=== PATIENT | female | born 1935 | race Caucasian/White ===

== ENCOUNTER 2019-05-06 08:00 | Inpatient (IN) ==
[2019-05-13] MEDS ORDERED: TRANEXAMIC ACID 1,000 MG in NORMAL SALINE 100 ML IV PRN (06:00)
[2019-05-13] MEDS ORDERED: ceFAZolin SODIUM 1 GM VIAL IV PRN (06:00)
[2019-05-13] MEDS ORDERED: ROPIVACAINE HCL/PF 100 MG, EPINEPHrine 0.2 MG, KETOROLAC TROMETHAMINE 30 MG in NORMAL S... IJ PRN (06:00)
--- NOTE | 2019-05-13 07:26 | ANES ---
Anesthesia Pre Procedure Eval Vitals/Labs: Last Vital Signs Temp 36.7 C 05/13/19 06:45 Pulse 69 05/13/19 06:45 Resp 16 05/13/19 06:45 BP 136/54 05/13/19 06:45 Pulse Ox 100 05/13/19 06:45 HOME MEDICATIONS chlorthalidone 25 mg tablet 25 mg PO DAILY #90 tab 03/19/19 [Last Taken 05/12/19] furosemide 40 mg tablet 40 mg PO DAILY PRN #30 tab 03/19/19 [Last Taken Unknown] hydrocodone 5 mg-acetaminophen 325 mg tablet 1 tab PO Q4H PRN #112 tab 03/19/19 [Last Taken 05/12/19] levothyroxine 50 mcg tablet 50 mcg PO DAILY #90 tab 03/19/19 [Last Taken 05/12/19] metformin 500 mg tablet 500 mg PO BID #180 tab 03/19/19 [Last Taken 05/12/19] pantoprazole 40 mg tablet,delayed release 40 mg PO DAILY #90 tab 03/19/19 [Last Taken 05/12/19] potassium chloride ER 10 mEq tablet,extended release(part/cryst) 10 meq PO TID #60 tab 03/19/19 [Last Taken Unknown] ropinirole 2 mg tablet 0.5 mg PO HS #180 tab 03/19/19 [Last Taken 05/12/19] ferrous gluconate 324 mg (38 mg iron) tablet 324 mg PO BID 04/09/19 [Last Taken 05/12/19] infliximab 100 mg intravenous solution 100 mg IV Q8W ea 04/09/19 [Last Taken 04/07/19] Allergies/Adverse Reactions: Allergies Allergy/AdvReac Type Severity Reaction Status Date / Time Penicillins Allergy Intermediate Swelling Verified 05/13/19 06:34 (Other) - Planned Procedure Planned Procedure: Left Total Knee Arthroplasty Medication List Reviewed:: Yes Allergies Verified: Yes Medical History (Updated 05/01/19 @ 01:05 by Chance Yee DO) Edema Onset Date: Unknown GERD (gastroesophageal reflux disease) Onset Date: Unknown Hypertension Onset Date: Unknown Hypothyroidism Onset Date: Unknown Rheumatoid arthritis Onset Date: Unknown Type 2 diabetes mellitus Onset Date: Unknown Surgical History (Updated 03/19/19 @ 14:41 by Nilda Cohen LPN) H/O arthroscopic knee surgery Onset Date: Unknown History of cholecystectomy Onset Date: Unknown Family History (Updated 03/19/19 @ 14:42 by Nilda Cohen LPN) Father Leukemia Mother Heart disease Sister Pancreatic cancer Sister Diabetes Colon cancer - Family Anesthesia History Family History:: no untoward family reactions to anesthesia, no familial bleeding tendencies, no family history of clotting disorders, no family history of premature - Airway/Neck/Teeth Teeth Condition: none Neck Exam: full range of motion Mallampatti Score: 1 Thyromental (T-M) distance: > 6 cm Mandibulo Hyoid distance: > 3 cm - Respiratory Respiratory Physical: lungs clear Smoking Status: Former smoker Sleep Apnea currently treated: No Sleep Apnea by current assessment: No - Cardiovascular Cardiac History: hypertension, valvular heart disease - by auscultation. No Echocardiogram present Tolerate Activity: Poor Heart Sounds: S1 & S2, Regular, Murmur - Grade III murmer throughout precordium, PMI at base. - Anesthesia Assessment and Plan ASA Class: PS, III Anesthesia Type Plan: General LMA, Block - for post op pain relief
[2019-05-13] MEDS: RINGER'S SOLUTION,LACTATED 1,000 ML IV PRN ×2 (07:30→08:15)
[2019-05-13] MEDS ORDERED: VANCOMYCIN HCL TP ONE ×2 (09:40)
[2019-05-13] MEDS ORDERED: DEXTROSE 5% TP ONE ×2 (09:40)
[2019-05-13] MEDS ORDERED: WATER TP ONE ×2 (09:40)
[2019-05-13] MEDS ORDERED: VANCOMYCIN HCL 1 GM VIAL TP ONE (10:00)
[2019-05-13] MEDS ORDERED: ACETAMINOPHEN 500 MG TABLET PO PRN (10:49)
[2019-05-13] MEDS ORDERED: MAG HYDROX/ALUMINUM HYD/SIMETH 30 ML UDC PO PRN (10:49)
[2019-05-13] MEDS ORDERED: ONDANSETRON HCL/PF 2 MG/ML VIAL IV PRN (10:49)
[2019-05-13] MEDS ORDERED: HYDROcodone/ACETAMINOPHEN 1 EACH TABLET PO PRN ×2 (10:49)
[2019-05-13] MEDS ORDERED: MAGNESIUM HYDROXIDE 30 ML UDC PO PRN (10:49)
--- NOTE | 2019-05-13 11:05 | OR ---
Operative Report - Dictated Report Narrative: Date: 05/13/2019 Preoperative diagnosis: Left knee degenerative joint disease. Postoperative diagnosis: Left knee degenerative joint disease, lateral femoral condyle fracture, osteopenia Procedure: Aborted left total knee arthroplasty. Surgeon: Malachi Pereira M.D. Airline Attendant: Chiki Moreno PA-C Anesthesia: General with regional block and local periarticular joint injection. Complications: None Specimens: Bone Estimated blood loss: Minimal. Tourniquet time: 115 Minutes at 275 millimeters of mercury. Retained implants: Antibiotic infused cemented monoblock spacer Indications: Lee Ann is a 83-year-old female community ambulator. This patient was followed in my clinic for period of time with significant complaints of left knee pain consistent with arthritic changes. They had failed conservative measures including but not limited to activity modification, passage of time, medications, and other conservative measures. Patient wished to proceed with surgical treatment. The risks, benefits, and alternatives were discussed in clinic. The risks of , blood clots, bleeding, infection, nerve/tendon blood vessel/ injury, malposition of components, intraoperative fracture, postoperative limited range of motion, persistent pain, failure of components, and need for additional procedures. Patient wished to proceed consent was obtained after answering all questions. Procedure: After marking the correct extremity on the floor, the patient was taken to the operating room. A timeout was performed. IV antibiotics consisting of 1 g of Ancef were administered prior to the procedure. A general followed by regional anesthetic was induced by anesthesia. on the operative table with all bony prominences well-padded. Rivera catheter was placed and a bump was placed under the operative side buttock. SCDs and RYLEY hose were utilized on the nonoperative leg. A well-padded tourniquet was applied to the operative thigh. The operative leg was then pre-scrubbed with alcohol prepped and draped in a standard sterile fashion. After exsanguinating the extremity with an Esmarch bandage, the tourniquet was inflated. After marking out the anterior knee for standard incision centered over the patella, the skin was incised and dissected down to the joint retinaculum. The joint retinaculum was marked out as well as the horizontal axis of the patella, and a standard medial parapatellar arthrotomy was then made. The most proximal aspect of the quadriceps tendon and the patella tendon insertion were protected from release. A partial synovectomy was performed as well as a resection of the infrapatellar fat pad. The distal femoral fat pad proximal to the trochlea was also resected using cautery. The soft tissues were elevated off the medial aspect of the proximal tibia using a Ott elevator ensuring that we did not transect the medial collateral ligament. Upon initial evaluation range of motion was approximately 0 degrees to 120 degrees of flexion. There were signs of advanced arthrosis in the medial and patellofemoral joint spaces. There were large marginal osteophytes which were removed with a rongeur. The knee was hyperflexed and the patella was tucked laterally. Protecting the surrounding soft tissues with Homans, an entry drill was placed down the femoral canal using Whitesides line for guidance into the entry point. The intramedullary femoral alignment kate was utilized in order to cut the distal femur in 5 of valgus resecting 10 millimeters of bone. Next the distal femur was sized to a size 4 standard. An anterior referencing guide was utilized to place the distal femoral cutting block in 3 of external rotation. This was pinned into place. The rotation was confirmed both visually and based on anatomic landmarks. The 4 in 1 cutting jig of the appropriate size was utilized in order to make all bony cuts. She was noted to have extremely poor bone quality at this point. Retractors were utilized in order to protect surrounding soft tissues. This cut did not result in any excessive notching. We then cut the box centered over the distal femur. This allowed for resection of the anterior and posterior cruciate ligaments. I then turned my attention to the preparation of the tibia. Using an extra medullary tibial alignment kate, 2 millimeters of bone was resected off the medial articular surface. This was made perpendicular to the mechanical axis of the joint with the alignment kate centered over the ankle mortise. The alignment kate was parallel to the mechanical axis, centered over the medial one third of the tibial tubercle, paralleling the anterior surface of the tibia. We then turned our attention to the remaining meniscus and soft tissues. These were removed while protecting the surrounding ligaments and soft tissues. The marginal osteophytes off the anterior, posterior, medial, lateral aspects of the femur and tibia were removed. The tibia was sized out to a size 4. Next the tibia was drilled and punched in an externally rotated position as confirmed with a drop kate. Next the trial femur and a series of tibial inserts were utilized in order to allow for full extension and maximal flexion. It was found that a 7 millimeter insert gave the best range of motion and stability at multiple flexion points as well as at full extension there was less than 2 mm of gapping both medially and laterally. There is minimal anterior translation with the knee at 90 of flexion and no signs of being able to dislocate the knee. The patella was then prepared. The initial thickness was 21 millimeters. This was reamed down to 13 millimeters parallel to the anterior surface of the patella. It was sized out to a size 35 mm medialized patella button. This was then drilled and trialed. Without any medial restraint the patella tracked appropriately and did not sublux or dislocate. At this point, it was felt these were the appropriate sized implants and all trials were removed. The standard periarticular joint injection consisting of ropivacaine, Toradol, and epinephrine were injected into the periarticular joint tissues. The bony surfaces were thoroughly irrigated with a pulsatile-suction saline irrigation device. A bone plug from the prior resected anterior chamfer cut was placed into the drill hole at the distal femur. The bony surfaces were then dried in preparation for placement of the implants. The cement was vacuum mixed per the studio model's instructions. The cement was placed on the dry bony surfaces and posterior aspect of the implants. We then began impacting implants. The tibia was impacted without issue. While impacting the femoral component the patient's lateral femoral condyle split apart into 2 separate fragments. One fragment comprising the lateral aspect of the condyle with the LCL attachment and the other a more medial joint fragment. It was clear at this point that this would not be amenable to fixation and would require either a constrained condylar or hinged distal femoral replacement implant. After an intraoperative consult with a colleague, it was determined that a hinged distal femoral replacement was likely the best option at this point. We do not have these implants in house. So, at this point we elected to proceed with a temporary monobloc cement spacer with a plan for transfer to a revision arthroplasty surgeon in definitive treatment with a likely hinged component. 2 batches of cement were prepared with 2 g of vancomycin powder. A monoblock puck style spacer was inserted between the femur and tibia to keep the knee out to length. The knee was held in full extension while the cement block cured. The knee was then thoroughly irrigated with normal saline. A periarticular joint injection was then performed for postoperative pain control. A Hemovac drain was then placed. The arthrotomy was closed with interrupted #1 Vicryl after thoroughly irrigating the joint. The deep and subcutaneous tissues were closed with interrupted 0 and 3-0 Vicryl respectively. Skin was closed with interrupted 3-0 Vicryl in a deep dermal fashion followed by john. Xeroform, 4 x 4's, ABD, Sof-Rol, Yoshi wrap, and a knee immobilizer were applied. All sponge, needle, blade, and instrument counts were correct prior to closing the wounds. Postoperative condition: The patient was awoken and transferred to the postanesthesia care unit in stable condition. Plan is to be admitted to the [facility] medical/surgical floor postoperatively with a plan for transfer to the [facility] under the care of Dr. Alex Caceres for planned definitive knee arthroplasty in the next few days.
--- NOTE | 2019-05-13 11:14 | ANES ---
Post Anesthesia Discharge - Transfer of Care Transfer of Care handoff given to nurse: Yes - Discharge from PACU Discharge from PACU when meets criteria: Yes - Anesthesia Post Op Note Anesthesia Post Op Note: some discomfort, ok to discharge to floor when PACU criteria met.
--- NOTE | 2019-05-13 11:30 | ANES ---
Post Anesthesia Assessment - Vital Signs Vitals: Last Vital Signs Temp 37.0 C 05/13/19 11:14 Pulse 102 H 05/13/19 11:14 Resp 16 05/13/19 11:14 BP 118/73 05/13/19 11:14 Pulse Ox 98 05/13/19 11:14 Airway Patency: Normal - Mental Status Level Of Consciousness: Awake, Alert, Restless - Pain Level Pain Score: 5 - N/V Assessment Nausea/Vomiting Presence: None Dehydration:: No
[2019-05-13] MEDS: NORMAL SALINE 1,000 ML IV PRN (11:37)
[2019-05-13] MEDS: MORPHINE SULFATE 2 MG/ML DISP.SYRIN IV PRN ×5 (12:02→21:54)
--- NOTE | 2019-05-13 12:40 | ANES ---
Anesthesia Procedure Note Procedure Note: ANESTHESIA PROCEDURE NOTE Date of Procedure: [05/13/2019 Time of procedure: 7:50 AM. Performed by: OSCAR Ames CRNA, MSN Hand Tacker: Vera Núñez RN. Preprocedure diagnosis: Left total knee arthroplasty pain. Post procedure diagnosis: Same. Procedure: Left adductor Canal Block. Indications: Post left total knee arthroplasty pain relief. Findings: See below. Details of the procedure: The patient was brought to OR #4 and placed in supine position. The patient's left femoral area to the knee was prepped with chlorhexidine and using ultrasound guidance the left femoral artery and nerve was identified and then followed to the level of the adductor canal. Lidocaine 1% was infiltrated to the skin of the intended injection site. Under ultrasound guidance the saphenous nerve was approached with visualization of a 2 inch shielded block needle. Once saphenous nerve was identified with proximity to the needle tip, the saphenous nerve was surrounded with 20 mL bupivacaine 0.25% with 1-200,000 epinephrine. Please see radiology/ultrasound report for details and retained images of the procedure. EBL: 0 Fluids: N/A. Specimen: N/A. Post procedure condition: The patient tolerated the procedure well. No complications were noted. Thank you for this consultation. Christophe Moulton CRNA, ARNP, MSN
[2019-05-13] MEDS: ceFAZolin SODIUM 1 GM in DEXTROSE 5 % IN WATER 100 ML IV SCH ×4 (14:26→21:17)
[2019-05-13] MEDS ORDERED: oxyCODONE HCL/ACETAMINOPHEN 1 TAB TABLET PO PRN (15:47)
[2019-05-13] MEDS: oxyCODONE HCL/ACETAMINOPHEN 1 TAB TABLET PO PRN (19:54)
[2019-05-13] MEDS ORDERED: SENNOSIDES/DOCUSATE SODIUM 1 TAB TABLET PO SCH (21:00)
[2019-05-14] MEDS: oxyCODONE HCL/ACETAMINOPHEN 1 TAB TABLET PO PRN ×4 (00:22→15:51)
[2019-05-14 05:38] LABS: Hematocrit 25.9 % (37.0-47.0); Hemoglobin 8.1 gm/dL (12.5-16.0); Mean Cell Volume 81.4 fl (78-100); Mean Corpuscular Hemoglobin 25.5 pg (27-31); Mean Corpuscular Hgb Conc 31.3 g/dl (32-36); Mean Platelet Volume 9.9 fl (8-12.5); Platelet Count 319 K/mm3 (150-450); Red Blood Count 3.18 M/mm3 (4.2-5.4); Red Cell Distribution Width 15.1 % (11.5-14.0); White Blood Count 7.4 K/mm3 (4.0-10.5)
[2019-05-14 05:40] LABS: Anion Gap 8.9 mmol/L (6.8-13.8); BUN/Creatinine Ratio 17.9 (9.0-21.6); Calcium * 8.3 mg/dL (7.9-10.9); Carbon Dioxide 33.6 mmol/L (24-32.6); Estimated Creat Clear 21.7
[2019-05-14] MEDS: ceFAZolin SODIUM 1 GM in DEXTROSE 5 % IN WATER 100 ML IV SCH ×2 (05:49)
[2019-05-14 06:03] LABS: Potassium 2.5 mmol/L (3.4-4.6)
[2019-05-14] MEDS: MORPHINE SULFATE 2 MG/ML DISP.SYRIN IV PRN ×3 (06:43→13:10)
[2019-05-14] MEDS: NORMAL SALINE 1,000 ML IV PRN (06:50)
[2019-05-14] MEDS: POTASSIUM CHLORIDE IN WATER 100 ML IV SCH ×4 (07:12→10:44)
[2019-05-14] MEDS ORDERED: FUROSEMIDE 40 MG TABLET PO PRN (07:47)
[2019-05-14] MEDS ORDERED: ACETAMINOPHEN 500 MG TABLET PO PRN (07:47)
--- NOTE | 2019-05-14 07:56 | PN ---
Subjective - Date and Time Seen Date: 05/14/19 Time: 07:52 Subjective Narrative: Patient appears to be sitting up comfortably in bed eating breakfast. Patient notes her pain has been better controlled with oral and IV pain medications in combination. Patient notes her pain is well controlled currently, worse when she moves better with rest. Patient notes she was having mild back pain, this is improved with sitting up. Patient notes that she was mildly restless during the night. Objective - Vitals Vitals: Last Vital Signs Temp 36.6 C 05/14/19 06:58 Pulse 84 05/14/19 06:58 Resp 18 05/14/19 06:58 BP 107/61 05/14/19 06:58 Pulse Ox 97 05/14/19 06:58 - Abnormal Lab Findings Abnormal Lab Findings: Abnormal Lab Results 05/14/19 05/14/19 Range/Units 05:10 05:10 RBC 3.18 L (4.2-5.4) M/mm3 Hgb 8.1 L (12.5-16.0) gm/dL Hct 25.9 L (37.0-47.0) % MCH 25.5 L (27-31) pg MCHC 31.3 L (32-36) g/dl RDW 15.1 H (11.5-14.0) % Potassium 2.5 L (3.4-4.6) mmol/L Chloride 93 L (97-106) mmol/L Carbon Dioxide 33.6 H (24-32.6) mmol/L BUN 25 H (3-23) mg/dL Est GFR (Non-Af Amer) 38 L D (60-130) mL/min - Exam Constitutional: Present: Alert, Cooperative, No distress Respiratory: Present: no respiratory distress Extremity: Present: other - LLE--> knee immobilizer in place, Yoshi bandage in place, no significant edema of left foot, distal capillary refill brisk, sensation intact light touch, 5/5 flexion extension of toes Eye contact: Present: cooperative Thoughts: Present: normal thought pattern Cauti Physician Documentation - Urinary Catheter Management Urethral (Rivera) Date of Insertion: 05/13/19 Time of Insertion: 08:15 Assessment/Plan Plan Narrative: -83 y/o female admitted status post fracture complication during a left total knee arthroplasty. -Continue with knee immobilizer, nonweightbearing left lower extremity -P.o. diet as tolerated -P.o. and IV pain medication in combination PRN for pain -Plan to transfer to [facility] for further treatment of left total knee arthroplasty revision. Case management has been in touch with [facility] and is awaiting a bed for transfer. 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
[2019-05-14] MEDS ORDERED: PANTOPRAZOLE SODIUM 40 MG TABLET.EC PO SCH (08:00)
[2019-05-14] MEDS ORDERED: LEVOTHYROXINE SODIUM 50 MCG TABLET PO SCH (08:00)
[2019-05-14] MEDS: POTASSIUM CHLORIDE 20 MEQ TABLET.SA PO SCH ×2 (08:49→19:03)
[2019-05-14] MEDS ORDERED: BETA-CAROTENE(A) W-C , E/MIN 1 TAB TABLET PO SCH (09:00)
[2019-05-14] MEDS ORDERED: CALCIUM CARBONATE/VITAMIN D3 1 TAB TABLET PO SCH (09:00)
[2019-05-14] MEDS ORDERED: metFORMIN HCL 500 MG TABLET PO SCH (09:00)
[2019-05-14] MEDS ORDERED: ASPIRIN 81 MG TABLET.DR PO SCH (09:00)
[2019-05-14] MEDS ORDERED: amLODIPine BESYLATE 5 MG TABLET PO SCH (09:00)
[2019-05-14] MEDS ORDERED: CHLORTHALIDONE 25 MG TABLET PO SCH (09:00)
--- NOTE | 2019-05-14 11:12 | CONS ---
[facility] - General Date of Service: 05/14/19 Narrative: Medicine consult to help manage her chronic hypokalemia. Her PCP was giving her 75 mEq K-Lyte daily for hypokalemia, and her K+ was 3.4 prior to surgery. She hadn't yet received potassium during this hospitalization, and her K+ was 2.5 this morning. 40 mEq IV was started, in addition to 40 mEq K-Dur bid. She also has a history of diabetes, controlled with po meds. She had a glucose of 225 yesterday, and was 105 this morning. - History of Present Illness Allergies/Adverse Reactions: Allergies Penicillins Allergy (Intermediate, Verified 05/13/19 06:34) Swelling (Other) Home Medications: Home Medications Medication Instructions Recorded Last Taken chlorthalidone 25 mg tablet 25 mg PO DAILY #90 tab 03/19/19 05/12/19 furosemide 40 mg tablet 40 mg PO PRN PRN #30 tab 03/19/19 Unknown hydrocodone 5 mg-acetaminophen 325 1 tab PO QID PRN #112 tab 03/19/19 05/12/19 mg tablet metformin 500 mg tablet 500 mg PO BID #180 tab 03/19/19 05/12/19 pantoprazole 40 mg tablet,delayed 40 mg PO DAILY #90 tab 03/19/19 05/12/19 release ropinirole 2 mg tablet 0.5 mg PO HS #180 tab 03/19/19 05/12/19 ferrous gluconate 324 mg (38 mg 324 mg PO BID 04/09/19 05/12/19 iron) tablet infliximab 100 mg intravenous 100 mg IV Q8W ea 04/09/19 04/07/19 solution Acetaminophen [Tylenol] 500 mg PO PRN PRN 05/13/19 Unknown Albuterol Sulfate/Ipratropium 3 ml INHALATION DAILY PRN 05/13/19 Unknown [Duoneb 2.5-0.5MG/3ML Soln] Aspirin [Aspirin EC] 81 mg PO DAILY 05/13/19 05/12/19 Calcium Carbonate/Vitamin D3 1 tab PO DAILY 05/13/19 05/12/19 [Calcium 500-Vit D3 200 Tablet] Clobetasol Propionate/Emoll 100 gm TOPICAL PRN PRN 05/13/19 Unknown [Olux-E 0.05% Foam] Levothyroxine Sodium [Synthroid] 50 mcg PO DAILY 05/13/19 05/12/19 Methotrexate ml SQ .COMPLEX 05/13/19 Unknown Oxymetazoline HCl [Nasal [place]] 2 spray NS TID PRN 05/13/19 Unknown Polyvinyl Alcohol [Artificial 1 drp OPHTHALMIC (EYE) BID 05/13/19 05/12/19 Tears] Vit A/Vit C/Vit E/Zinc/Copper 1 ea PO BID 05/13/19 05/12/19 [Preservision Areds Tablet] amLODIPine BESYLATE [Norvasc] 5 mg PO DAILY 05/13/19 05/13/19 Procedures Discission of secondary membrane [after cataract] (08/23/99) Insertion of intraocular lens prosthesis at time of cataract extraction, one- stage (07/12/99) Phacoemulsification and aspiration of cataract (07/12/99) Medications - Medications Current Medications: Current Medications Amlodipine Besylate (Norvasc) 5 mg PO DAILY [facility] Stop: 06/13/19 09:01 Last Admin: 05/14/19 08:49 Dose: 5 mg Documented by: Aspirin (Aspirin Enteric Coated) 81 mg PO DAILY [facility] Stop: 06/13/19 09:01 Last Admin: 05/14/19 08:51 Dose: 81 mg Documented by: Calcium/Vitamin D (Calcarb 600 With Vitamin D) 1 tab PO DAILY [facility] Stop: 06/13/19 09:01 Last Admin: 05/14/19 08:51 Dose: 1 tab Documented by: Chlorthalidone (Hygroton) 25 mg PO DAILY [facility] Stop: 06/13/19 09:01 Last Admin: 05/14/19 08:49 Dose: 25 mg Documented by: Sodium Chloride (Sodium Chloride 0.9%) 1,000 mls @ 90 mls/hr IV .Q11H7M PRN PRN Reason: HYDRATION Stop: 06/12/19 10:50 Last Admin: 05/14/19 06:50 Dose: 90 mls/hr Documented by: Levothyroxine Sodium (Synthroid) 50 mcg PO DAILY@0700 [facility] Stop: 06/13/19 08:01 Last Admin: 05/14/19 08:51 Dose: 50 mcg Documented by: Metformin HCl (Glucophage) 500 mg PO BID [facility] Stop: 06/13/19 09:01 Last Admin: 05/14/19 08:51 Dose: 500 mg Documented by: Morphine Sulfate (Morphine Sulfate) 2 mg IV Q1H PRN PRN Reason: Severe Pain (pain scale 7-10) Stop: 06/12/19 10:50 Last Admin: 05/14/19 06:43 Dose: 2 mg Documented by: Ferrous Gluconate (324 Mg) 324 mg PO BID [facility] Stop: 06/13/19 09:01 Last Admin: 05/14/19 08:52 Dose: Not Given Documented by: Oxycodone/Acetaminophen (Percocet 5 Mg/325 Mg) 2 tab PO Q4H PRN PRN Reason: Moderate Pain (pain scale 4-6) Stop: 06/12/19 16:27 Last Admin: 05/14/19 08:49 Dose: 2 tab Documented by: Pantoprazole Sodium (Protonix) 40 mg PO DAILY@0700 [facility] Stop: 06/13/19 08:01 Last Admin: 05/14/19 08:51 Dose: 40 mg Documented by: Potassium Chloride (K-Dur) 40 meq PO BIDWM [facility] Stop: 06/13/19 09:01 Last Admin: 05/14/19 08:49 Dose: 40 meq Documented by: Senna/Docusate Sodium (Senokot-S) 2 tab PO HS [facility] Stop: 06/12/19 21:01 Last Admin: 05/13/19 21:17 Dose: 2 tab Documented by: Vit A/Vit C/Vit E/Selen/Cu/Zn/Lutei (Ocuvite) 1 tab PO BID [facility] Stop: 06/13/19 09:01 Last Admin: 05/14/19 08:51 Dose: 1 tab Documented by: Review of Systems - Review of Systems Narrative: Positive for right knee pain. Denies fevers, decreased appetite, CP, SOB, abd pain, N/V/D, dysuria. Physical Examination - Exam Vital Signs: Vital Signs - Last Taken Temp 36.6 C 05/14/19 10:00 Pulse 68 05/14/19 10:00 Resp 16 05/14/19 10:00 BP 142/54 05/14/19 10:00 Pulse Ox 95 05/14/19 10:00 O2 Oxygen Delivery Method Room Air Comprehensive Narative: 05/14/19 11:11 PE: Const: Elderly, no acute distress HEENT: edentulous, dry mucous membranes CV: HRRR, 2/6 murmur over right sternal border Resp: No increased effort, CTAB Abd: Soft, nontender, positive bowel sounds Ext: immobilizer in place of left lower leg, SCD over right lower leg, RYLEY hose in place - Results and Findings: Lab/Microbiology results last 24 hrs: Abnormal/Pending Laboratory Last 24 HRS 05/14/19 05/14/19 05:10 05:10 RBC 3.18 L Hgb 8.1 L Hct 25.9 L MCH 25.5 L MCHC 31.3 L RDW 15.1 H Potassium 2.5 L Chloride 93 L Carbon Dioxide 33.6 H BUN 25 H Est GFR (Non-Af Amer) 38 L D - Assessments/Findings (1) Diabetes mellitus Diagnosis(s): DM: Continue 500 mg metformin bid. Will start SSI if glucose is consistently higher than 200. Glucose checks with meals and at bedtime. Problem: Acute (2) Hypokalemia Diagnosis(s): Hypokalemia: Chronic. 40 mEq given IV, 40 mEq po bid started. Recheck this afternoon. She is prescribed 75 mEq K-Lyte, but she would prefer a tablet. She may have difficulty swallowing the KDur tablet. Will continue what she can tolerate. Problem: Acute (3) Primary osteoarthritis of left knee Diagnosis(s): Left femoral condyle fracture - Mgt per ortho. Awaiting transfer to the [facility]. Problem: Chronic
--- NOTE | 2019-05-14 12:08 | ANES ---
Post Anesthesia Assessment - Vital Signs Vitals: Last Vital Signs Temp 36.6 C 05/14/19 10:00 Pulse 68 05/14/19 10:00 Resp 16 05/14/19 10:00 BP 142/54 05/14/19 10:00 Pulse Ox 95 05/14/19 10:00 Airway Patency: Normal - Mental Status Level Of Consciousness: Awake, Alert, Appropriate - Pain Level Pain Score: 5 - Last rated pain 8, but appears and admits to being comfortable now. - N/V Assessment Nausea/Vomiting Presence: None Dehydration:: No
[2019-05-14 14:10] LABS: Albumin * 2.5 gm/dl (3.4-5.0); Anion Gap 9.8 mmol/L (6.8-13.8); BUN/Creatinine Ratio 17.3 (9.0-21.6); Bilirubin, Total 0.5 mg/dL (0.0-1.1); Ca. Corrected For Albumin 9.7 mg/dL (8.4-10.2); Calcium * 8.8 mg/dL (7.9-10.9); Carbon Dioxide 32.5 mmol/L (24-32.6); Potassium 3.3 mmol/L (3.4-4.6); Total Protein 5.9 gm/dL (6.2-8.2)
--- NOTE | 2019-05-14 16:06 | DS ---
Transfer Discharge Summary - Diagnosis(s)/Problems (1) Primary osteoarthritis of left knee Narrative: Complication with intraoperative fracture of the lateral condyle Problem: Chronic - Course Description of Stay: Patient was admitted status post her left knee total arthroplasty. During surgical procedure there is an intraoperative complication with a fracture occurring through the lateral condyle. Due to this implants were unstable and unable to continue with the primary knee arthroplasty. The knee was stabilized with a cement spacer being created. Surgical incision was closed patient was admitted for further treatment including transfer to a center with resources available to further complete the surgical procedure. Patient was placed in appropriate dressings as well as a knee immobilizer to maintain stability while this process was completed. Patient has had an uncomplicated stay, notes she has had significant chronic hypokalemia, this is attempted to be treated with IV potassium. Patient also has had significant pain, this is been managed with a combination of oral and IV medications. Patient overall has returned to p.o. diet, her pain is well controlled on this regimen, postoperative dressings remain in place. At this time patient will be transferred to [facility] for admission to their inpatient services as well as consultation from the orthopedic physicians. Procedures Performed: see notes below Procedures: Left knee total arthroplasty, intraoperative complication of lateral condyle fracture - Results and Findings Results and Findings: Laboratory Results - last 24 hr 05/14/19 05/14/19 05/14/19 05:10 05:10 13:51 WBC 7.4 RBC 3.18 L Hgb 8.1 L Hct 25.9 L MCV 81.4 MCH 25.5 L MCHC 31.3 L RDW 15.1 H Plt Count 319 MPV 9.9 Sodium 133 133 Plasma Sodium 133 134 Potassium 2.5 L 3.3 L D Chloride 93 L 94 L Carbon Dioxide 33.6 H 32.5 Anion Gap 8.9 9.8 BUN 25 H 24 H Creatinine 1.40 D 1.39 Est GFR (Non-Af Amer) 38 L D 38 L BUN/Creatinine Ratio 17.9 17.3 Random Glucose 105 132 H Calcium 8.3 8.8 Calcium Adj for Albumin 9.7 Total Bilirubin 0.5 AST 40 ALT 14 L Alkaline Phosphatase 54 Total Protein 5.9 L Albumin 2.5 L - Medications Medications: Active Medications Amlodipine Besylate (Norvasc) 5 mg PO DAILY [facility] Stop: 06/13/19 09:01 Last Admin: 05/14/19 08:49 Dose: 5 mg Documented by: Aspirin (Aspirin Enteric Coated) 81 mg PO DAILY [facility] Stop: 06/13/19 09:01 Last Admin: 05/14/19 08:51 Dose: 81 mg Documented by: Calcium/Vitamin D (Calcarb 600 With Vitamin D) 1 tab PO DAILY [facility] Stop: 06/13/19 09:01 Last Admin: 05/14/19 08:51 Dose: 1 tab Documented by: Chlorthalidone (Hygroton) 25 mg PO DAILY [facility] Stop: 06/13/19 09:01 Last Admin: 05/14/19 08:49 Dose: 25 mg Documented by: Sodium Chloride (Sodium Chloride 0.9%) 1,000 mls @ 90 mls/hr IV .Q11H7M PRN PRN Reason: HYDRATION Stop: 06/12/19 10:50 Last Admin: 05/14/19 06:50 Dose: 90 mls/hr Documented by: Levothyroxine Sodium (Synthroid) 50 mcg PO DAILY@0700 [facility] Stop: 06/13/19 08:01 Last Admin: 05/14/19 08:51 Dose: 50 mcg Documented by: Metformin HCl (Glucophage) 500 mg PO BID [facility] Stop: 06/13/19 09:01 Last Admin: 05/14/19 08:51 Dose: 500 mg Documented by: Morphine Sulfate (Morphine Sulfate) 2 mg IV Q1H PRN PRN Reason: Severe Pain (pain scale 7-10) Stop: 06/12/19 10:50 Last Admin: 05/14/19 13:10 Dose: 2 mg Documented by: Ferrous Gluconate (324 Mg) 324 mg PO BID [facility] Stop: 06/13/19 09:01 Last Admin: 05/14/19 08:52 Dose: Not Given Documented by: Oxycodone/Acetaminophen (Percocet 5 Mg/325 Mg) 2 tab PO Q4H PRN PRN Reason: Moderate Pain (pain scale 4-6) Stop: 06/12/19 16:27 Last Admin: 05/14/19 15:51 Dose: 2 tab Documented by: Pantoprazole Sodium (Protonix) 40 mg PO DAILY@0700 [facility] Stop: 06/13/19 08:01 Last Admin: 05/14/19 08:51 Dose: 40 mg Documented by: Potassium Chloride (K-Dur) 40 meq PO BIDWM [facility] Stop: 06/13/19 09:01 Last Admin: 05/14/19 08:49 Dose: 40 meq Documented by: Senna/Docusate Sodium (Senokot-S) 2 tab PO HS [facility] Stop: 06/12/19 21:01 Last Admin: 05/13/19 21:17 Dose: 2 tab Documented by: Vit A/Vit C/Vit E/Selen/Cu/Zn/Lutei (Ocuvite) 1 tab PO BID [facility] Stop: 06/13/19 09:01 Last Admin: 05/14/19 08:51 Dose: 1 tab Documented by: Discontinued Medications Hydrocodone Bitart/Acetaminophen ([place] 5-325) 2 each PO Q6H PRN PRN Reason: Severe Pain (pain scale 7-10) Stop: 06/12/19 10:50 Last Admin: 05/13/19 11:38 Dose: 2 each Documented by: Cefazolin Sodium (Ancef) 1 gm IV PRN PRN; Protocol PRN Reason: Perioperative Stop: 05/13/19 23:00 Last Admin: 05/13/19 07:50 Dose: 1 gm Documented by: Lactated Ringer's (Lactated Ringers) 1,000 mls @ 175 mls/hr IV .Q5H43M PRN PRN Reason: HYDRATION Stop: 05/13/19 23:59 Last Infusion: 05/13/19 13:58 Dose: Infused Documented by: Tranexamic Acid 1,000 mg/ (Sodium Chloride) 110 mls @ 600 mls/hr IV PRN PRN PRN Reason: blood loss reduction Stop: 05/13/19 23:00 Last Infusion: 05/13/19 10:06 Dose: Infused Documented by: Ropivacaine 100 mg/Epinephrine HCl 0.2 mg/Ketorolac Tromethamine 30 mg/Sodium Chloride 111.2 mls @ 0.01 mls/hr IJ PRN PRN PRN Reason: JOINT INJECTION Stop: 05/13/19 23:59 Last Admin: 05/13/19 09:50 Dose: 0.01 mls/hr Documented by: Vancomycin HCl 2 gm/ Dextrose/ (Water) 250 mls @ 140 mls/hr TP ONCE ONE; Protocol Stop: 05/13/19 11:27 Last Admin: 05/13/19 09:41 Dose: 140 mls/hr Documented by: Cefazolin Sodium 1 gm/ (Dextrose/Water) 100 mls @ 200 mls/hr IV Q8H SIO[facility]AN; Protocol Stop: 05/14/19 06:29 Last Infusion: 05/14/19 06:19 Dose: Infused Documented by: Potassium Chloride/Water (Kcl 10 Meq/100 Ml Piggyback) 100 mls @ 100 mls/hr IV Q1H [facility] Stop: 05/14/19 10:14 Last Admin: 05/14/19 10:44 Dose: 80 mls/hr Documented by: Morphine Sulfate (Morphine Sulfate) 1 mg IV Q2H PRN PRN Reason: Severe Pain (pain scale 7-10) Stop: 06/12/19 10:50 Last Admin: 05/13/19 14:25 Dose: 1 mg Documented by: Vancomycin HCl (Vancomycin) 2 gm TP ONCE ONE Stop: 05/13/19 10:01 Last Admin: 05/13/19 09:40 Dose: 2 gm Documented by: - Disposition Disposition: Short Term Hospital Inpatient Condition: Good Discharge Date: 05/14/19
[2019-05-14 18:59] VITALS: BP 130/67
[2019-05-14] MEDS ORDERED: rOPINIRole HCL 0.5 MG TABLET PO SCH (21:00)
== END 2019-05-14 16:30 | disposition short-term general hospital (02) | DRG 470 ==
LOC: MS 05-13 06:21 → EDSTATUS 05-13 08:00
PROVIDERS: ADMIT Orthopaedic Surgery; ATTEND Orthopaedic Surgery
CPT/HCPCS: 36415; 73560; 80048; 80053; 85027; 88305; 88311